=== PATIENT | female | born 1965 | race Caucasian/White ===

== ENCOUNTER 2016-09-02 21:12 | Emergency (ER) | payer BC ==
--- NOTE | ~2016-09-02 | ER ---
PATIENT'S NAME: BILL SEPULVEDA [facility] AGE: 51 Y [address] ROOM: [place] [address] LOCATION: ED ADMIT DATE: 09/02/2016 ER/Outpatient Report DISCHARGE DATE: 09/02/2016 FAMILY PHYSICIAN: , Unknown ATTENDING PHYSICIAN: Sisi Rhoades Time of Arrival: 2 hours. Time of Evaluation: 7 hours. CHIEF COMPLAINT: Right lower extremity pain. HISTORY OF PRESENT ILLNESS: This is a 51-year-old female, who presents to the ER, who states she has been dealing with some pain to her medial right thigh. This started on Monday. The patient states that this evening, her pain intensified and now has radiated into her medial right calf as well. She states that she has not noticed any redness to the skin. No shortness or breath or any other problems at this time. She does have a history of vein ablation in her leg, and she states that she has never had anything like this before. She did call her primary care physician, and they would like her to be evaluated to make sure she does not have DVT. ALLERGIES: SULFA. MEDICATIONS: 1. Protonix. 2. Trazodone. PAST MEDICAL HISTORY: Seasonal allergies. PAST SURGICAL HISTORY: She has a pacemaker. Appendectomy. She had bilateral lower extremity stab phlebectomies. SOCIAL HISTORY: Denies smoking or drug use. She does drink alcohol occasionally. REVIEW OF SYSTEMS: A 10-point review of systems was completed and was negative with the exception of those discussed in the HPI. PHYSICAL EXAMINATION: PATIENT'S NAME: BILL SEPULVEDA [facility] AGE: 51 Y [address] ROOM: [place], [place] [address] LOCATION: [facility] ADMIT DATE: 09/02/2016 ER/Outpatient Report DISCHARGE DATE: 09/02/2016 FAMILY PHYSICIAN: , Unknown ATTENDING PHYSICIAN: Sisi Rhoades VITAL SIGNS: Height 5 feet 9 inches stated, weight 75.1 kg taken, blood pressure is 138/81, pulse 81, respirations 16, temperature 98.7 degrees tympanically, saturations 97% on room air. Edu Coma Score is 15. GENERAL: An alert, calm, well-developed female, in no acute distress. LUNGS: Clear HEART: Regular Rate and Rhythm EXTREMITIES: No clubbing or cyanosis. She does have tenderness over the medial aspect of her right lower extremity. No erythema is seen. She has good pulses bilaterally in lower extremities. She has full range of motion of all of her limbs. NEURO: Cranial nerves 2 through 12 grossly intact. Gait is steady without assistance. LABORATORY DATA AND X-RAYS: None were done. Ultrasound of her right lower extremity was done and was negative for DVT. IMPRESSION: Right lower extremity pain. ASSESSMENT AND PLAN: I did give the patient reassurance. I advised her to do warm compresses to the leg. Tylenol and ibuprofen as needed for pain control and follow up with primary care physician if it does not improve. The patient understands and agrees with care. SUSANA LONG PA-C FOR MD SAHIL AVERY/hayden /[id number] d: 09/03/16 0226 t: 09/08/16 1818, OUTPATIENT REPORT
--- NOTE | ~2016-09-02 | ENPV ---
Vascular Lower Extremities DVT Study Procedure Demographics Patient Name BILL SEPULVEDA Date of Study 09/02/2016 Patient Number [id number] Gender Female Date of 1965 Age 51 Visit Number [id number] Height Accession Number [id number] Weight Room Number BSA BMI Referring Jf Laird MD Interpreting Jeff Frey MD Physician Physician Physician Ordering Physician Jf Laird MD Bridge Opener Psychopaedic Nurse Aisha Delano RDCS, RVT Conclusions Summary No evidence of deep vein thrombosis or superficial thrombophlebitis in the right lower extremity . Procedure Type of Study: Veins:Lower Extremities DVT Study, Lower Extremity Right. Appropriate Use Criteria:7 Patient Status:STAT. Study Location:ER. Technical Quality:Adequate visualization. Risk Factors - The patient's risk factor(s) include: lack of physical activity. Velocities are measured in cm/s ; Diameters are measured in cm Right Lower Extremities DVT Study Measurements Right 2D and Doppler Measurements + + + + +------+------+ + !Location !Visualized!Compressibility!Thrombosis!Signal!Reflux!Reflux ! ! ! ! ! ! ! !(sec) ! + + + + +------+------+ + !GSV Thigh !Yes !Yes !None !Phasic!No ! ! + + + + +------+------+ + !Common !Yes !Yes !None !Phasic!No ! ! !Femoral ! ! ! ! ! ! ! + + + + +------+------+ + !Prox !Yes !Yes !None !Phasic!No ! ! !Femoral ! ! ! ! ! ! ! + + + + +------+------+ + !Mid Femoral!Yes !Yes !None !Phasic!No ! ! + + + + +------+------+ + !Dist !Yes !Yes !None !Phasic!No ! ! !Femoral ! ! ! ! ! ! ! + + + + +------+------+ + !Popliteal !Yes !Yes !None !Phasic!No ! ! + + + + +------+------+ + !Gastroc !Yes !Yes !None !Phasic!No ! ! + + + + +------+------+ + !PTV !Yes !Yes !None !Phasic!No ! ! + + + + +------+------+ + !Peroneal !Yes !Yes !None !Phasic!No ! ! + + + + +------+------+ + Left Lower Extremities DVT Study Measurements Left 2D and Doppler Measurements + + + + +------+------+ + !Location !Visualized!Compressibility!Thrombosis!Signal!Reflux!Reflux ! ! ! ! ! ! ! !(sec) ! + + + + +------+------+ + !Common !Yes !Yes !None !Phasic! ! ! !Femoral ! ! ! ! ! ! ! + + + + +------+------+ + Signature dtt: BRENDA CARRION dtd: 09/02/16 2141 Physician Self Edit
[~2016-09-02 21:12] MED LIST: CRANBERRY TABL1 EACH PO; DESYREL50 MG PO; FLAX SEED OIL1000 MG PO; GLUCOSAMINE &1 EAC1 PO; MULTI FOR HER1 EACH PO; NORCO 5-325 MG1 TAB PO; OMEPRAZOLE40 MG PO; OSCAL + D500 MG PO; PROBIOTIC1 EAC1 PO
== END 2016-09-02 22:07 | disposition disaster alternative care site (69) ==
LOC: GMED 21:12
DX: M79.604 Pain in right leg (principal); Z88.2 Allergy status to sulfonamides; Z95.0 Presence of cardiac pacemaker; Z90.49 Acquired absence of other specified parts of digestive tract